=== PATIENT | male | born 1995 | race African-American/Black ===

== ENCOUNTER 2021-06-01 23:31 | Emergency (ER) | payer OTHER ==
[~2021-06-01] VITALS: Ht 200.7 cm; Wt 64.5 kg
--- NOTE | 2021-06-02 00:55 | RAD ---
EXAM: RIGHT HAND 3 VIEWS. HISTORY: Trauma, pain. COMPARISON: None. FINDINGS: No fractures are identified. Alignment is maintained. Joint spaces are maintained. IMPRESSION: 1. No fracture. Electronically signed by: Leana Vaca MD (06/02/2021 12:53 AM) [facility]
--- NOTE | 2021-06-02 01:05 | PHYS DOC ---
General Adult EDM: Chief Complaint: HAND PROBLEM HPI: HPI: 25-year-old male presents with right hand pain. The patient was at work when his hand got closed in an oven door. He did not get burned, but was direct trauma. Is aching across the base of his phalanges. He denies any change in sensation or feeling. He has no other complaints. Review of Systems: Review of Systems: Constitutional: Denies fever or chills Eyes: Denies change in visual acuity HENT: Denies nasal congestion or sore throat Respiratory: Denies cough or shortness of breath Cardiovascular: Denies chest pain or edema GI: Denies abdominal pain, nausea, vomiting, bloody stools or diarrhea : Denies dysuria Musculoskeletal: Right hand pain Integument: Denies rash Neurologic: Denies headache, focal weakness or sensory changes Endocrine: Denies polyuria or polydipsia Lymphatic: Denies swollen glands Psychiatric: Denies depression or anxiety Allergies: Allergies: Allergies Coded Allergies Type Severity Reaction Last Updated Verified tea tree Allergy Unknown 06/02/21 Yes Physical Exam: PE: Constitutional: Well developed, well nourished, no acute distress, non-toxic appearance. [] HENT: Normocephalic, atraumatic, bilateral external ears normal, oropharynx moist, no oral exudates, nose normal. [] Eyes: PERRLA, EOMI, conjunctiva normal, no discharge. [] Neck: Normal range of motion, no tenderness, supple, no stridor. [] Cardiovascular:Heart rate regular rhythm, no murmur [] Lungs & Thorax: Bilateral breath sounds clear to auscultation [] Abdomen: Bowel sounds normal, soft, no tenderness, no masses, no pulsatile masses. [] Skin: Warm, dry, no erythema, no rash. [] Back: No tenderness, no CVA tenderness. [] Extremities: Mild tenderness over the right posterior hand, no obvious deformity. [] Neurologic: Alert and oriented X 3, normal motor function, normal sensory function, no focal deficits noted. [] Psychologic: Affect normal, judgement normal, mood normal. [] EKG: EKG: [] Radiology/Procedures: Radiology/Procedures: [] Impressions: EXAM: RIGHT HAND 3 VIEWS. HISTORY: Trauma, pain. COMPARISON: None. FINDINGS: No fractures are identified. Alignment is maintained. Joint spaces are maintained. IMPRESSION: 1. No fracture. Electronically signed by: Leana Vaca MD (06/02/2021 12:53 AM) [facility] DICTATED AND SIGNED BY: ROBERT VACA MD DATE: 06/02/2150 CC: BRENDON ROBERTS DO; PCP,NO ~MTH0 0 Heart Score: C/O Chest Pain: N/A Risk Factors: Risk Factors: DM, Current or recent (<one month) smoker, HTN, HLP, family history of CAD, obesity. Risk Scores: Score 0 - 3: 2.5% MACE over next 6 weeks - Discharge Home Score 4 - 6: 20.3% MACE over next 6 weeks - Admit for Clinical Observation Score 7 - 10: 72.7% MACE over next 6 weeks - Early Invasive Strategies Course & Med Decision Making: Course & Med Decision Making Pertinent Labs and Imaging studies reviewed. (See chart for details) The patient does not have a fracture. This is a hand contusion. He is stable for discharge at this time. [] Dragon Disclaimer: Draglindsay Disclaimer: This electronic medical record was generated, in whole or in part, using a voice recognition dictation system. Departure Departure: Impression: Primary Impression: Contusion of right hand Qualified Codes: S60.221A - Contusion of right hand, initial encounter Disposition: HOME / SELF CARE / HOMELESS Condition: STABLE Referrals: PCP,NIVIA (PCP) Patient Instructions: Hand Contusion, [id number] BRENDON ROBERTS DO Jun 02, 2021 01:05
== END 2021-06-02 01:10 | disposition home or self-care (01) ==
LOC: ER 23:31
DX: S60.221A Contusion of right hand, initial encounter (principal); Z88.8 Allergy status to other drugs, medicaments and biological substances; W23.0XXA Caught, crushed, jammed, or pinched between moving objects, initial encounter; Y93.89 Activity, other specified; Y92.89 Other specified places as the place of occurrence of the external cause; Y99.8 Other external cause status
CPT/HCPCS: 73130; 99283